=== PATIENT | female | born 1955 | race Caucasian/White ===

== ENCOUNTER 2019-09-21 09:44 | Emergency (ER) | payer SELFPAY ==
[~2019-09-21] VITALS: Ht 165.1 cm; Wt 95.5 kg
[2019-09-21] MEDS ORDERED: ondansetron 4mg rapidly disintigrating tab PO ONE (10:30)
[2019-09-21] MEDS ORDERED: ketorolac trometh. 30mg/ml inj. IM ONE (10:50)
[2019-09-21] MEDS ORDERED: ketorolac trometh inj. 60 MG/2 ML VIAL IM ONE (10:50)
[2019-09-21] MEDS ORDERED: HYDR-3965 PO (11:36)
[2019-09-21 12:12] VITALS: BP 150/97
== END 2019-09-21 12:14 | disposition home or self-care (01) ==
LOC: ER 09:45
DX: S42.212A Unspecified displaced fracture of surgical neck of left humerus, initial encounter for closed fracture (principal); Z79.899 Other long term (current) drug therapy; W18.39XA Other fall on same level, initial encounter; Y93.89 Activity, other specified; Y92.89 Other specified places as the place of occurrence of the external cause; Y99.8 Other external cause status
CPT/HCPCS: 73030; 73060; 96372; 99284; J1885